=== PATIENT | female | born 1945 | race Caucasian/White ===

== ENCOUNTER 2019-03-19 16:53 | Inpatient (IN) | payer MEDICARE, BC ==
[2019-03-19] MEDS ORDERED: Albuterol/Ipratropium 3.0-0.5 MG/3 ML Neb Soln NEB ONE (16:58)
[2019-03-19] MEDS ORDERED: Sodium Chloride 0.9% 1,000 ML IV SCH (17:00)
--- NOTE | 2019-03-19 17:00 | EDM.PDOC ---
ED HPI GENERAL MEDICAL PROBLEM - General Chief Complaint: Respiratory Problem Stated Complaint: COUGHING Time Seen by Provider: 03/19/19 16:59 Source of Information: Reports: Patient - History of Present Illness INITIAL COMMENTS - FREE TEXT/NARRATIVE: HISTORY AND PHYSICAL: History of present illness: [Patient presents with cough shortness of breath increasing over the last month , she has had several visits with her primary care in [place] she is had multiple chest x-rays and a CT of her chest with no findings She has completed a course of amoxicillin, she also notes she has had some travel to [place] [facility] [place] was [place] and had returned home a few weeks prior to initiation of symptoms No fever nausea vomiting chills sweats however patient complains of persistent cough shortness of breath wheeze she has also been on albuterol and prednisone for these symptoms no chest pain headache dizziness palpitation no bowel or urine symptoms Review of systems: As per history of present illness and below otherwise all systems reviewed and negative. Past medical history: As per history of present illness and as reviewed below otherwise noncontributory. Surgical history: As per history of present illness and as reviewed below otherwise noncontributory. Social history: No reported history of drug or alcohol abuse. Family history: As per history of present illness and as reviewed below otherwise noncontributory. Physical exam: HEENT: Atraumatic, normocephalic, pupils reactive, negative for conjunctival pallor or scleral icterus, mucous membranes moist, throat clear, neck supple, nontender, trachea midline. Lungs: Clear to auscultation, breath sounds equal bilaterally, chest nontender. Heart: S1S2, regular, negative for clicks, rubs, or JVD. Abdomen: Soft, nondistended, nontender. Negative for masses or hepatosplenomegaly. Negative for costovertebral tenderness. Pelvis: Stable nontender. Genitourinary: Deferred. Rectal: Deferred. Extremities: Atraumatic, negative for cords or calf pain. Neurovascular unremarkable. Neuro: Awake, alert, oriented. Cranial nerves II through XII unremarkable. Cerebellum unremarkable. Motor and sensory unremarkable throughout. Exam nonfocal. Diagnostics: [CBC CMP UA blood cultures peripheral smear d-dimer Chest [address] maxillofacial sinus ] Therapeutics: [ normal saline Levaquin Diflucan ] Impression: Sinusitis [ leukocytosis 16,000 absolute count neutrophils monocytes and lymphocytes elevated -peripheral smear ordered Travel to [facility]-consider Desert fever General malaise persistent cough and wheeze Definitive disposition and diagnosis as appropriate pending reevaluation and review of above. - Related Data Allergies Allergy/AdvReac Type Severity Reaction Status Date / Time Sulfa (Sulfonamide Allergy Other Verified 03/19/19 17:03 Antibiotics) Home Meds: Home Meds Ascorbic Acid [Vitamin C] 500 mg PO DAILY 03/19/19 [History] Aspirin [Adult Low Dose Aspirin EC] 1 tab DAILY 03/19/19 [History] Cetirizine [ZyrTEC] 10 mg PO DAILY 03/19/19 [History] Lactobacillus Acidophilus [Probiotic] 1 each PO DAILY 03/19/19 [History] Metoprolol Tartrate 0.5 tab PO DAILY 03/19/19 [History] Psyllium Husk/Aspartame [Metamucil Fiber Singles Packet] 3.4 gm PO ASDIRECTED PRN 03/19/19 [History] Quinapril HCl 40 mg PO DAILY 03/19/19 [History] Simvastatin 20 mg PO ASDIRECTED 03/19/19 [History] Vitamin B Complex/Folic Acid [Super B Maxi Complex Caplet] 1 tab DAILY 03/19/19 [History] ED ROS GENERAL - Review of Systems Review Of Systems: See Below ED EXAM, GENERAL - Physical Exam Exam: See Below Course - Vital Signs Last Recorded V/S: Last Vital Signs Temp 96.7 F 03/19/19 17:01 Pulse 102 H 03/19/19 17:01 Resp 20 03/19/19 17:01 BP 187/98 H 03/19/19 17:01 Pulse Ox 96 03/19/19 17:01 - Orders/Labs/Meds Orders: Active Orders 24 hr Category Date Time Status EKG Documentation Completion [RC] STAT Care 03/19/19 16:59 Active RT Aerosol Therapy [RC] ASDIRECTED Care 03/19/19 16:59 Active Maxillofacial w/o CM [Max Facial Sinus wo Cont] [CT] Exams 03/19/19 18:15 Taken Stat CULTURE BLOOD [BC] Stat Lab 03/19/19 18:18 Ordered CULTURE BLOOD [BC] Stat Lab 03/19/19 18:18 Ordered CULTURE BLOOD [BC] Stat Lab 03/19/19 18:30 Ordered CULTURE BLOOD [BC] Stat Lab 03/19/19 18:30 Ordered D-DIMER QUANTITATIVE [COAG] Stat Lab 03/19/19 18:21 Ordered PERIPH BLOOD SMEAR PATHOLOGIST [HEME] Stat Lab 03/19/19 18:25 Ordered UA W/MICROSCOPIC [URIN] Stat Lab 03/19/19 18:05 Results Fluconazole/Dextrose [Diflucan in Dextrose 200 MG/100 Med 03/19/19 18:30 Active ML] 200 mg Premix Bag 1 bag IV Q24H Levofloxacin/Dextrose 5%-Water [Levaquin in D5W 500 MG/ Med 03/19/19 18:17 Active 100 ML] 500 mg Premix Bag 1 bag IV ONETIME Sodium Chloride 0.9% [Normal Saline] 1,000 ml Med 03/19/19 17:00 Active IV STAT Blood Culture x2 Reflex Set [OM.PC] Stat Oth 03/19/19 18:18 Ordered Blood Culture x2 Reflex Set [OM.PC] Stat Oth 03/19/19 18:30 Ordered Medication Orders Sodium Chloride (Normal Saline) 1,000 mls @ 125 mls/hr IV STAT MARK Last Admin: 03/19/19 17:17 Dose: 125 mls/hr Fluconazole 200 mg/ Premix 100 mls @ 100 mls/hr IV Q24H MARK Levofloxacin/Dextrose 500 mg/ (Premix) 100 mls @ 100 mls/hr IV ONETIME ONE Stop: 03/19/19 19:16 Labs: Laboratory Tests 03/19/19 03/19/19 03/19/19 Range/Units 17:15 17:15 17:15 WBC 16.49 H (4.0-11.0) K/uL RBC 4.22 L (4.30-5.90) M/uL Hgb 13.6 (12.0-16.0) g/dL Hct 40.8 (36.0-46.0) % MCV 96.7 (80.0-98.0) fL MCH 32.2 H (27.0-32.0) pg MCHC 33.3 (31.0-37.0) g/dL RDW Std Deviation 47.3 (28.0-62.0) fl RDW Coeff of [place] 13 (11.0-15.0) % Plt Count 236 (150-400) K/uL MPV 10.10 (7.40-12.00) fL Neut % (Auto) 59.1 (48.0-80.0) % Lymph % (Auto) 29.7 (16.0-40.0) % [place] % (Auto) 8.0 (0.0-15.0) % Eos % (Auto) 2.9 (0.0-7.0) % Baso % (Auto) 0.3 (0.0-1.5) % Neut # (Auto) 9.7 H (1.4-5.7) K/uL Lymph # (Auto) 4.9 H (0.6-2.4) K/uL [place] # (Auto) 1.3 H (0.0-0.8) K/uL Eos # (Auto) 0.5 (0.0-0.7) K/uL Baso # (Auto) 0.1 (0.0-0.1) K/uL Nucleated RBC % 0.0 /100WBC Nucleated RBCs # 0 K/uL Sodium 140 (136-145) mmol/L Potassium 4.2 (3.5-5.1) mmol/L Chloride 103 (98-107) mmol/L Carbon Dioxide 29.3 (21.0-32.0) mmol/L BUN 17 (7.0-18.0) mg/dL Creatinine 1.4 H (0.6-1.0) mg/dL Est Cr Clr Drug Dosing 29.16 mL/min Estimated GFR (MDRD) 36.8 ml/min Glucose 116 H (74-106) mg/dL Calcium 8.8 (8.5-10.1) mg/dL Total Bilirubin 0.4 (0.2-1.0) mg/dL AST 21 (15-37) IU/L ALT 26 (14-63) IU/L Alkaline Phosphatase 68 (46-116) U/L Troponin I < 0.050 (0.000-0.056) ng/mL B-Natriuretic Peptide 45 (<100) PG/ML Total Protein 6.9 (6.4-8.2) g/dL Albumin 3.2 L (3.4-5.0) g/dL Globulin 3.7 (2.6-4.0) g/dL Albumin/Globulin Ratio 0.9 (0.9-1.6) Urine Color Urine Appearance Urine pH (5.0-8.0) Ur Specific [place] (1.001-1.035) Urine Protein (NEGATIVE) mg/dL Urine Glucose (UA) (NEGATIVE) mg/dL Urine Ketones (NEGATIVE) mg/dL Urine Occult Blood (NEGATIVE) Urine Nitrite (NEGATIVE) Urine Bilirubin (NEGATIVE) Urine Urobilinogen (<2.0) EU/dL Ur Leukocyte Esterase (NEGATIVE) 03/19/19 Range/Units 18:05 WBC (4.0-11.0) K/uL RBC (4.30-5.90) M/uL Hgb (12.0-16.0) g/dL Hct (36.0-46.0) % MCV (80.0-98.0) fL MCH (27.0-32.0) pg MCHC (31.0-37.0) g/dL RDW Std Deviation (28.0-62.0) fl RDW Coeff of [place] (11.0-15.0) % Plt Count (150-400) K/uL MPV (7.40-12.00) fL Neut % (Auto) (48.0-80.0) % Lymph % (Auto) (16.0-40.0) % [place] % (Auto) (0.0-15.0) % Eos % (Auto) (0.0-7.0) % Baso % (Auto) (0.0-1.5) % Neut # (Auto) (1.4-5.7) K/uL Lymph # (Auto) (0.6-2.4) K/uL [place] # (Auto) (0.0-0.8) K/uL Eos # (Auto) (0.0-0.7) K/uL Baso # (Auto) (0.0-0.1) K/uL Nucleated RBC % /100WBC Nucleated RBCs # K/uL Sodium (136-145) mmol/L Potassium (3.5-5.1) mmol/L Chloride (98-107) mmol/L Carbon Dioxide (21.0-32.0) mmol/L BUN (7.0-18.0) mg/dL Creatinine (0.6-1.0) mg/dL Est Cr Clr Drug Dosing mL/min Estimated GFR (MDRD) ml/min Glucose (74-106) mg/dL Calcium (8.5-10.1) mg/dL Total Bilirubin (0.2-1.0) mg/dL AST (15-37) IU/L ALT (14-63) IU/L Alkaline Phosphatase (46-116) U/L Troponin I (0.000-0.056) ng/mL B-Natriuretic Peptide (<100) PG/ML Total Protein (6.4-8.2) g/dL Albumin (3.4-5.0) g/dL Globulin (2.6-4.0) g/dL Albumin/Globulin Ratio (0.9-1.6) Urine Color YELLOW Urine Appearance CLEAR Urine pH 5.5 (5.0-8.0) Ur Specific [place] 1.020 (1.001-1.035) Urine Protein NEGATIVE (NEGATIVE) mg/dL Urine Glucose (UA) NEGATIVE (NEGATIVE) mg/dL Urine Ketones NEGATIVE (NEGATIVE) mg/dL Urine Occult Blood TRACE-INTACT H (NEGATIVE) Urine Nitrite NEGATIVE (NEGATIVE) Urine Bilirubin NEGATIVE (NEGATIVE) Urine Urobilinogen 0.2 (<2.0) EU/dL Ur Leukocyte Esterase NEGATIVE (NEGATIVE) Meds: Medications Generic Name Dose Route Start Last Admin Trade Name Freq PRN Reason Stop Dose Admin Sodium Chloride 1,000 mls @ 125 mls/hr 03/19/19 17:00 03/19/19 17:17 Normal Saline IV 125 mls/hr STAT MARK Administration Fluconazole 200 mg/ Premix 100 mls @ 100 mls/hr 03/19/19 18:30 IV Q24H MARK Levofloxacin/Dextrose 500 mg/ 100 mls @ 100 mls/hr 03/19/19 18:17 Premix IV 03/19/19 19:16 ONETIME ONE Discontinued Medications Generic Name Dose Route Start Last Admin Trade Name Freq PRN Reason Stop Dose Admin Albuterol/Ipratropium 3 ml 03/19/19 16:58 03/19/19 17:14 Duoneb 3.0-0.5 Mg/3 Ml NEB 03/19/19 16:59 3 ml ONETIME ONE Administration Methylprednisolone Sodium Succinate 125 mg 03/19/19 18:17 03/19/19 18:47 Solu-Medrol IVPUSH 03/19/19 18:18 125 mg ONETIME ONE Administration Departure - Departure Time of Disposition: 18:52 Disposition: Admitted As Inpatient 65 Condition: Fair Clinical Impression: Persistent cough, Sinusitis - Discharge Information Referrals: PCP,None [Primary Care Provider] - Forms: ED Department Discharge - My Orders Last 24 Hours: My Active Orders 03/19/19 16:59 EKG Documentation Completion [RC] STAT RT Aerosol Therapy [RC] ASDIRECTED 03/19/19 17:00 Sodium Chloride 0.9% [Normal Saline] 1,000 ml IV STAT 03/19/19 18:05 UA W/MICROSCOPIC [URIN] Stat 03/19/19 18:15 Maxillofacial w/o CM [Max Facial Sinus wo Cont] [CT] Stat 03/19/19 18:17 Levofloxacin/Dextrose 5%-Water [Levaquin in D5W 500 MG/100 ML] 500 mg Premix Bag 1 bag IV ONETIME 03/19/19 18:18 CULTURE BLOOD [BC] Stat CULTURE BLOOD [BC] Stat Blood Culture x2 Reflex Set [OM.PC] Stat 03/19/19 18:21 D-DIMER QUANTITATIVE [COAG] Stat 03/19/19 18:25 PERIPH BLOOD SMEAR PATHOLOGIST [HEME] Stat 03/19/19 18:30 CULTURE BLOOD [BC] Stat CULTURE BLOOD [BC] Stat Fluconazole/Dextrose [Diflucan in Dextrose 200 MG/100 ML] 200 mg Premix Bag 1 bag IV Q24H Blood Culture x2 Reflex Set [OM.PC] Stat - Assessment/Plan Last 24 Hours: My Active Orders 03/19/19 16:59 EKG Documentation Completion [RC] STAT RT Aerosol Therapy [RC] ASDIRECTED 03/19/19 17:00 Sodium Chloride 0.9% [Normal Saline] 1,000 ml IV STAT 03/19/19 18:05 UA W/MICROSCOPIC [URIN] Stat 03/19/19 18:15 Maxillofacial w/o CM [Max Facial Sinus wo Cont] [CT] Stat 03/19/19 18:17 Levofloxacin/Dextrose 5%-Water [Levaquin in D5W 500 MG/100 ML] 500 mg Premix Bag 1 bag IV ONETIME 03/19/19 18:18 CULTURE BLOOD [BC] Stat CULTURE BLOOD [BC] Stat Blood Culture x2 Reflex Set [OM.PC] Stat 03/19/19 18:21 D-DIMER QUANTITATIVE [COAG] Stat 03/19/19 18:25 PERIPH BLOOD SMEAR PATHOLOGIST [HEME] Stat 03/19/19 18:30 CULTURE BLOOD [BC] Stat CULTURE BLOOD [BC] Stat Fluconazole/Dextrose [Diflucan in Dextrose 200 MG/100 ML] 200 mg Premix Bag 1 bag IV Q24H Blood Culture x2 Reflex Set [OM.PC] Stat
[2019-03-19 17:53] LABS: CHLORIDE,CL 103 mmol/L (98-107); SODIUM,NA 140 mmol/L (136-145)
--- NOTE | 2019-03-19 18:07 | CR ---
HISTORY: Cough and shortness of breath. COMPARISON: None available FINDINGS: A portable erect AP view of the chest was obtained at STUDY TIME hours. The lungs are clear. No focal or diffuse infiltrates are present. The heart is normal in size. The mediastinum is normal in appearance. The osseous structures are normal in appearance for the patient`s age. IMPRESSION: Normal portable chest single view. Dictated by Zane Sung MD @ Mar 19 2019 6:05PM Signed by Dr. Zane Sung @ Mar 19 2019 6:06PM
[2019-03-19] MEDS ORDERED: Levofloxacin/Dextrose 5%-Water 500 MG in Premix Bag 1 BAG IV ONE (18:17)
[2019-03-19] MEDS ORDERED: methylPREDNISolone Sodium Succinate 125 MG/2 ML SDV IVPUSH ONE (18:17)
[2019-03-19] MEDS ORDERED: Fluconazole/Dextrose 200 MG in Premix Bag 1 BAG IV SCH (18:30)
--- NOTE | 2019-03-19 19:06 | CT ---
INDICATION: Sinus pain COMPARISON: none TECHNIQUE: A CT volumetric acquisition was performed of the sinuses without IV contrast. Please note that all CT scans at this facility use dose modulation, iterative reconstruction, and/or weight-based dosing when appropriate to reduce radiation dose to as low as reasonably achievable. FINDINGS: Mild-moderate mucoperiosteal thickening within the maxillary sinuses bilaterally, left greater than right. Near complete opacification of the ethmoid sinuses bilaterally. Mild mucoperiosteal thickening within the sphenoid sinuses. Moderate opacification of the inferior right frontal sinus. Clear left frontal sinus. Obstruction of the ostiomeatal complexes bilaterally. Clear mastoid air cells and middle ear cavities. IMPRESSION: At least moderate bilateral sinus disease. Please note that all CT scans at this facility use dose modulation, iterative reconstruction, and/or weight-based dosing when appropriate to reduce radiation dose to as low as reasonably achievable. Dictated by Esteban Rain MD @ Mar 19 2019 7:00PM Signed by Dr. Esteban Rain @ Mar 19 2019 7:05PM
[2019-03-19] MEDS ORDERED: Albuterol/Ipratropium 3.0-0.5 MG/3 ML Neb Soln NEB PRN (20:23)
[2019-03-19] MEDS ORDERED: oxyCODONE 5 MG Tab PO PRN (20:27)
[2019-03-19] MEDS: Fluconazole 100 MG Tab PO SCH (21:03)
[2019-03-20] MEDS: methylPREDNISolone Sodium Succinate 125 MG/2 ML SDV IVPUSH SCH ×3 (03:08→18:13)
[2019-03-20] MEDS: Sodium Chloride 0.9% 1,000 ML IV SCH ×3 (03:08→23:15)
[2019-03-20] MEDS: Acetaminophen 325 MG Tab PO PRN ×3 (04:51→23:13)
--- NOTE | 2019-03-20 06:26 | PCM.HP ---
H&P History of Present Illness - General Date of Service: 03/20/19 Admit Problem/Dx: Admission Diagnosis/Problem Admission Diagnosis/Problem Cough Source of Information: Patient History Limitations: Reports: No Limitations - History of Present Illness Initial Comments - Free Text/Narative: The patient is a 73-year-old lady who is presented to the emergency department with a complaint of cough and sputum production. The patient had been recently in [place] and spent 6 months of the year in [place]. The patient reports that she had been evaluated at urgent care center and had been on several courses of antibiotics but had failed to improve. Because of this the patient has been concerned about fungal infection. The patient has denied any fever or chills. She's had no nausea or vomiting. The patient has denied any chest pain. The patient has been in her usual state of health. Onset of Symptoms: Reports: Gradual Duration of Symptoms: Reports: Week(s): (4 weeks) Location: Reports: Chest Quality: Reports: Ache Severity: Mild Improves with: Reports: Rest Worsens with: Reports: Breathing Context: Reports: Travel Associated Symptoms: Reports: cough w sputum - Related Data Allergies/Adverse Reactions: Allergies Allergy/AdvReac Type Severity Reaction Status Date / Time Sulfa (Sulfonamide Allergy Other Verified 03/19/19 21:02 Antibiotics) Home Medications: Home Meds Ascorbic Acid [Vitamin C] 500 mg PO DAILY 03/19/19 [History] Aspirin [Adult Low Dose Aspirin EC] 1 tab DAILY 03/19/19 [History] Cetirizine [ZyrTEC] 10 mg PO DAILY 03/19/19 [History] Lactobacillus Acidophilus [Probiotic] 1 each PO DAILY 03/19/19 [History] Metoprolol Tartrate 0.5 tab PO DAILY 03/19/19 [History] Psyllium Husk/Aspartame [Metamucil Fiber Singles Packet] 3.4 gm PO ASDIRECTED PRN 03/19/19 [History] Quinapril HCl 40 mg PO DAILY 03/19/19 [History] Simvastatin 20 mg PO ASDIRECTED 03/19/19 [History] Vitamin B Complex/Folic Acid [Super B Maxi Complex Caplet] 1 tab DAILY 03/19/19 [History] guaiFENesin [Mucinex] 2 tab PO DAILY PRN 03/19/19 [History] Past Medical History HEENT History: Reports: Hard of Hearing, Impaired Vision, Sinusitis Cardiovascular History: Reports: High Cholesterol, Hypertension Respiratory History: Reports: None Gastrointestinal History: Reports: Chronic Constipation Genitourinary History: Reports: Other (See Below) Other Genitourinary History: bladder repair after hysterectomy Musculoskeletal History: Reports: None Neurological History: Reports: None Psychiatric History: Reports: None Endocrine/Metabolic History: Reports: None Hematologic History: Reports: None Immunologic History: Reports: None Oncologic (Cancer) History: Reports: None Dermatologic History: Reports: Other (See Below) Other Dermatologic History: thin skin, per patient, brusies easily - Infectious Disease History Infectious Disease History: Reports: Chicken Pox - Past Surgical History HEENT Surgical History: Reports: None Cardiovascular Surgical History: Reports: None GI Surgical History: Reports: None Female Surgical History: Reports: Hysterectomy, Other (See Below) Other Female Surgeries/Procedures: bladder repair after hysterectomy Endocrine Surgical History: Reports: Other (See Below) Other Endocrine Surgeries/Procedures: partial thyroid removal Dermatological Surgical History: Reports: None Social & Family History - Family History Family Medical History: Noncontributory - Tobacco Use Smoking Status *Q: Never Smoker Second Hand Smoke Exposure: No - Caffeine Use Caffeine Use: Reports: Coffee, Tea - Alcohol Use Days Per Week of Alcohol Use: 3 Number of Drinks Per Day: 2 Total Drinks Per Week: 6 Date of Last Drink: 03/12/19 - Recreational Drug Use Recreational Drug Use: No - Living Situation & Occupation Living situation: Reports: , with Family Occupation: Retired H&P Review of Systems - Review of Systems: Review Of Systems: See Below General: Reports: Chills, Weakness HEENT: Reports: Hearing Changes Pulmonary: Reports: Cough, Sputum. Denies: Shortness of Breath, Wheezing Cardiovascular: Reports: No Symptoms Gastrointestinal: Reports: No Symptoms Genitourinary: Reports: No Symptoms Musculoskeletal: Reports: No Symptoms Skin: Reports: No Symptoms Psychiatric: Reports: No Symptoms Neurological: Reports: No Symptoms Hematologic/Lymphatic: Reports: No Symptoms Immunologic: Reports: No Symptoms Exam - Exam Exam: See Below - Vital Signs Vital Signs: Last Vital Signs Temp 36.3 C 03/20/19 04:54 Pulse 96 03/20/19 04:54 Resp 14 03/20/19 04:54 BP 144/79 H 03/20/19 04:54 Pulse Ox 94 L 03/20/19 04:54 Weight: 76.067 kg - Exam Quality Assessment: No: Supplemental Oxygen General: Alert, Oriented, Cooperative HEENT: Conjunctiva Clear, EACs Clear, EOMI, Mucosa Moist & [place], Normal Nasal Septum, Pupils Equal, PERRLA Neck: Supple, Trachea Midline Lungs: Clear to Auscultation, Normal Respiratory Effort Cardiovascular: Regular Rate, Regular Rhythm GI/Abdominal Exam: Normal Bowel Sounds, Soft, No Distention. No: Guarding, Rigid, Rebound Back Exam: Normal Inspection, Full Range of Motion Extremities: Normal Inspection, Normal Range of Motion, Pedal Edema (Trace) Skin: Warm, Dry, Intact Neurological: Cranial Nerves Intact Neuro Extensive - Mental Status: Alert, Oriented x3 Psychiatric: Alert, Normal Affect, Normal Mood - Patient Data Lab Results Last 24 hrs: Laboratory Results - last 24 hr 03/19/19 03/19/19 03/19/19 Range/Units 17:15 17:15 17:15 WBC 16.49 H (4.0-11.0) K/uL RBC 4.22 L (4.30-5.90) M/uL Hgb 13.6 (12.0-16.0) g/dL Hct 40.8 (36.0-46.0) % MCV 96.7 (80.0-98.0) fL MCH 32.2 H (27.0-32.0) pg MCHC 33.3 (31.0-37.0) g/dL RDW Std Deviation 47.3 (28.0-62.0) fl RDW Coeff of [place] 13 (11.0-15.0) % Plt Count 236 (150-400) K/uL MPV 10.10 (7.40-12.00) fL Neut % (Auto) 59.1 (48.0-80.0) % Lymph % (Auto) 29.7 (16.0-40.0) % [place] % (Auto) 8.0 (0.0-15.0) % Eos % (Auto) 2.9 (0.0-7.0) % Baso % (Auto) 0.3 (0.0-1.5) % Neut # (Auto) 9.7 H (1.4-5.7) K/uL Lymph # (Auto) 4.9 H (0.6-2.4) K/uL [place] # (Auto) 1.3 H (0.0-0.8) K/uL Eos # (Auto) 0.5 (0.0-0.7) K/uL Baso # (Auto) 0.1 (0.0-0.1) K/uL Nucleated RBC % 0.0 /100WBC Nucleated RBCs # 0 K/uL Smear Path Review D-Dimer, Quantitative (0.0-0.50) mg/L FEU Sodium 140 (136-145) mmol/L Potassium 4.2 (3.5-5.1) mmol/L Chloride 103 (98-107) mmol/L Carbon Dioxide 29.3 (21.0-32.0) mmol/L BUN 17 (7.0-18.0) mg/dL Creatinine 1.4 H (0.6-1.0) mg/dL Est Cr Clr Drug Dosing 29.16 mL/min Estimated GFR (MDRD) 36.8 ml/min Glucose 116 H (74-106) mg/dL Calcium 8.8 (8.5-10.1) mg/dL Total Bilirubin 0.4 (0.2-1.0) mg/dL AST 21 (15-37) IU/L ALT 26 (14-63) IU/L Alkaline Phosphatase 68 (46-116) U/L Troponin I < 0.050 (0.000-0.056) ng/mL B-Natriuretic Peptide 45 (<100) PG/ML Total Protein 6.9 (6.4-8.2) g/dL Albumin 3.2 L (3.4-5.0) g/dL Globulin 3.7 (2.6-4.0) g/dL Albumin/Globulin Ratio 0.9 (0.9-1.6) Urine Color Urine Appearance Urine pH (5.0-8.0) Ur Specific [place] (1.001-1.035) Urine Protein (NEGATIVE) mg/dL Urine Glucose (UA) (NEGATIVE) mg/dL Urine Ketones (NEGATIVE) mg/dL Urine Occult Blood (NEGATIVE) Urine Nitrite (NEGATIVE) Urine Bilirubin (NEGATIVE) Urine Urobilinogen (<2.0) EU/dL Ur Leukocyte Esterase (NEGATIVE) Urine RBC (0-2/HPF) Urine WBC (0-5/HPF) Ur Epithelial Cells (NONE-FEW) Urine Bacteria (NEGATIVE) 03/19/19 03/19/19 03/19/19 Range/Units 17:15 18:05 18:49 WBC (4.0-11.0) K/uL RBC (4.30-5.90) M/uL Hgb (12.0-16.0) g/dL Hct (36.0-46.0) % MCV (80.0-98.0) fL MCH (27.0-32.0) pg MCHC (31.0-37.0) g/dL RDW Std Deviation (28.0-62.0) fl RDW Coeff of [place] (11.0-15.0) % Plt Count (150-400) K/uL MPV (7.40-12.00) fL Neut % (Auto) (48.0-80.0) % Lymph % (Auto) (16.0-40.0) % [place] % (Auto) (0.0-15.0) % Eos % (Auto) (0.0-7.0) % Baso % (Auto) (0.0-1.5) % Neut # (Auto) (1.4-5.7) K/uL Lymph # (Auto) (0.6-2.4) K/uL [place] # (Auto) (0.0-0.8) K/uL Eos # (Auto) (0.0-0.7) K/uL Baso # (Auto) (0.0-0.1) K/uL Nucleated RBC % /100WBC Nucleated RBCs # K/uL Smear Path Review SENT TO PATHOLOGY D-Dimer, Quantitative 4.99 H (0.0-0.50) mg/L FEU Sodium (136-145) mmol/L Potassium (3.5-5.1) mmol/L Chloride (98-107) mmol/L Carbon Dioxide (21.0-32.0) mmol/L BUN (7.0-18.0) mg/dL Creatinine (0.6-1.0) mg/dL Est Cr Clr Drug Dosing mL/min Estimated GFR (MDRD) ml/min Glucose (74-106) mg/dL Calcium (8.5-10.1) mg/dL Total Bilirubin (0.2-1.0) mg/dL AST (15-37) IU/L ALT (14-63) IU/L Alkaline Phosphatase (46-116) U/L Troponin I (0.000-0.056) ng/mL B-Natriuretic Peptide (<100) PG/ML Total Protein (6.4-8.2) g/dL Albumin (3.4-5.0) g/dL Globulin (2.6-4.0) g/dL Albumin/Globulin Ratio (0.9-1.6) Urine Color YELLOW Urine Appearance CLEAR Urine pH 5.5 (5.0-8.0) Ur Specific [place] 1.020 (1.001-1.035) Urine Protein NEGATIVE (NEGATIVE) mg/dL Urine Glucose (UA) NEGATIVE (NEGATIVE) mg/dL Urine Ketones NEGATIVE (NEGATIVE) mg/dL Urine Occult Blood TRACE-INTACT H (NEGATIVE) Urine Nitrite NEGATIVE (NEGATIVE) Urine Bilirubin NEGATIVE (NEGATIVE) Urine Urobilinogen 0.2 (<2.0) EU/dL Ur Leukocyte Esterase NEGATIVE (NEGATIVE) Urine RBC 1-2 (0-2/HPF) Urine WBC 0-1 (0-5/HPF) Ur Epithelial Cells RARE (NONE-FEW) Urine Bacteria RARE (NEGATIVE) 03/20/19 Range/Units 05:56 WBC 13.69 H (4.0-11.0) K/uL RBC 4.06 L (4.30-5.90) M/uL Hgb 12.8 (12.0-16.0) g/dL Hct 39.1 (36.0-46.0) % MCV 96.3 (80.0-98.0) fL MCH 31.5 (27.0-32.0) pg MCHC 32.7 (31.0-37.0) g/dL RDW Std Deviation 45.6 (28.0-62.0) fl RDW Coeff of [place] 13 (11.0-15.0) % Plt Count 245 (150-400) K/uL MPV 10.10 (7.40-12.00) fL Neut % (Auto) 57.9 (48.0-80.0) % Lymph % (Auto) 39.4 (16.0-40.0) % [place] % (Auto) 1.3 (0.0-15.0) % Eos % (Auto) 1.2 (0.0-7.0) % Baso % (Auto) 0.2 (0.0-1.5) % Neut # (Auto) 7.9 H (1.4-5.7) K/uL Lymph # (Auto) 5.4 H (0.6-2.4) K/uL [place] # (Auto) 0.2 (0.0-0.8) K/uL Eos # (Auto) 0.2 (0.0-0.7) K/uL Baso # (Auto) 0.0 (0.0-0.1) K/uL Nucleated RBC % 0.0 /100WBC Nucleated RBCs # 0 K/uL Smear Path Review D-Dimer, Quantitative (0.0-0.50) mg/L FEU Sodium (136-145) mmol/L Potassium (3.5-5.1) mmol/L Chloride (98-107) mmol/L Carbon Dioxide (21.0-32.0) mmol/L BUN (7.0-18.0) mg/dL Creatinine (0.6-1.0) mg/dL Est Cr Clr Drug Dosing mL/min Estimated GFR (MDRD) ml/min Glucose (74-106) mg/dL Calcium (8.5-10.1) mg/dL Total Bilirubin (0.2-1.0) mg/dL AST (15-37) IU/L ALT (14-63) IU/L Alkaline Phosphatase (46-116) U/L Troponin I (0.000-0.056) ng/mL B-Natriuretic Peptide (<100) PG/ML Total Protein (6.4-8.2) g/dL Albumin (3.4-5.0) g/dL Globulin (2.6-4.0) g/dL Albumin/Globulin Ratio (0.9-1.6) Urine Color Urine Appearance Urine pH (5.0-8.0) Ur Specific [place] (1.001-1.035) Urine Protein (NEGATIVE) mg/dL Urine Glucose (UA) (NEGATIVE) mg/dL Urine Ketones (NEGATIVE) mg/dL Urine Occult Blood (NEGATIVE) Urine Nitrite (NEGATIVE) Urine Bilirubin (NEGATIVE) Urine Urobilinogen (<2.0) EU/dL Ur Leukocyte Esterase (NEGATIVE) Urine RBC (0-2/HPF) Urine WBC (0-5/HPF) Ur Epithelial Cells (NONE-FEW) Urine Bacteria (NEGATIVE) Result Diagrams: 03/20/19 05:56 03/20/19 05:56 - Problem List (1) Bronchitis SNOMED Code(s): 38861223 ICD Code: J40 - BRONCHITIS, NOT SPECIFIED ACUTE OR CHRONIC Status: Acute Priority: High Current Visit: Yes (2) Hypertension SNOMED Code(s): 92456433 ICD Code: I10 - ESSENTIAL (PRIMARY) HYPERTENSION Status: Chronic Priority : High Current Visit: Yes Qualifiers: Hypertension type: essential hypertension Qualified Code(s): I10 - Essential (primary) hypertension (3) Persistent cough SNOMED Code(s): 142533663 ICD Code: R05 - COUGH Status: Chronic Priority: High Current Visit: Yes (4) Sinusitis SNOMED Code(s): 13965703 ICD Code: J32.9 - CHRONIC SINUSITIS, UNSPECIFIED Status: Chronic Priority : High Current Visit: Yes Qualifiers: Sinusitis location: maxillary Chronicity: chronic Qualified Code(s): J32.0 - Chronic maxillary sinusitis (5) Hyperlipidemia SNOMED Code(s): 33691248 ICD Code: E78.5 - HYPERLIPIDEMIA, UNSPECIFIED Status: Chronic Priority: Medium Current Visit: Yes Qualifiers: Hyperlipidemia type: other hyperlipidemia Qualified Code(s): E78.49 - Other hyperlipidemia; E78.4 - Other hyperlipidemia Problem List Initiated/Reviewed/Updated: Yes Orders Last 24hrs: Active Orders 24 hr Category Date Time Status Admission Status [Patient Status] [ADT] Stat ADT 03/19/19 18:53 Active EKG Documentation Completion [RC] STAT Care 03/19/19 16:59 Active Oxygen Therapy [RC] CONTINUOUS Care 03/19/19 20:30 Active RT Aerosol Therapy [RC] ASDIRECTED Care 03/19/19 16:59 Active Regular Diet [DIET] Diet 03/20/19 Breakfast Active BMP [BASIC METABOLIC PANEL,BMP] [CHEM] Routine Lab 03/20/19 05:56 Received CULTURE BLOOD [BC] Stat Lab 03/19/19 18:49 Received CULTURE BLOOD [BC] Stat Lab 03/19/19 18:49 Received Acetaminophen [Tylenol] Med 03/19/19 20:26 Active 650 mg PO Q6H PRN Albuterol/Ipratropium [DuoNeb 3.0-0.5 MG/3 ML] Med 03/19/19 20:23 Active 3 ml NEB Q4HRRT PRN Fluconazole [Diflucan] Med 03/19/19 21:00 Active 100 mg PO Q24H Sodium Chloride 0.9% [Normal Saline] 1,000 ml Med 03/19/19 20:30 Active IV ASDIRECTED methylPREDNISolone Sod Succ [Solu-MEDROL] Med 03/20/19 03:00 Active 125 mg IVPUSH Q8H oxyCODONE Med 03/19/19 20:27 Active 5 mg PO Q4H PRN Blood Culture x2 Reflex Set [OM.PC] Stat Oth 03/19/19 18:18 Ordered Blood Culture x2 Reflex Set [OM.PC] Stat Ot 03/19/19 18:30 Ordered Medication Orders Acetaminophen (Tylenol) 650 mg PO Q6H PRN PRN Reason: Pain (mild 1-3) Last Admin: 03/20/19 04:51 Dose: 650 mg Albuterol/Ipratropium (Duoneb 3.0-0.5 Mg/3 Ml) 3 ml NEB Q4HRRT PRN PRN Reason: Shortness of Breath Fluconazole (Diflucan) 100 mg PO Q24H [facility] Last Admin: 03/19/19 21:03 Dose: 100 mg Sodium Chloride (Normal Saline) 1,000 mls @ 100 mls/hr IV ASDIRECTED MARK Last Admin: 03/20/19 03:08 Dose: 100 mls/hr Methylprednisolone Sodium Succinate (Solu-Medrol) 125 mg IVPUSH Q8H [facility] Last Admin: 03/20/19 03:08 Dose: 125 mg Oxycodone HCl (Oxycodone) 5 mg PO Q4H PRN PRN Reason: Pain (moderate 4-6) Assessment/Plan Comment:: Patient is a 73-year-old lady who presented to the emergency department with bronchitis with cough and sputum production. The patient had been on outpatient antibiotics and had failed disease. Fungal cultures as well as fungal stain have been ordered for sputum. The patient will be admitted and started on Levaquin and Diflucan for now. These will be de-escalated as needed. I've also ordered SVNs. The patient will be anticoagulated with heparin for now. She'll be continued on fluids. Patient has been encouraged to ambulate. I've ordered repeat laboratory studies. The patient will need to have a PFT as an outpatient. The patient should be appropriate for discharge in 1-2 days. The patient will be monitored with regards to her vital signs. I've ordered her antihypertensives continued. She'll have a heart healthy diet as tolerated.
[2019-03-20] MEDS ORDERED: Ondansetron 4 MG Tab.DIS PO PRN (06:48)
[2019-03-20] MEDS ORDERED: Temazepam 15 MG Cap PO PRN (06:48)
[2019-03-20] MEDS: Heparin Sodium 5,000 Units/ML Vial SUBCUT SCH ×3 (08:00→23:09)
[2019-03-20] MEDS: Metoprolol Tartrate 25 MG Tab PO SCH (08:03)
[2019-03-20] MEDS: Ascorbic Acid 500 MG Tab PO SCH (08:03)
[2019-03-20] MEDS: Aspirin 81 MG Tab.EC PO SCH (08:04)
[2019-03-20] MEDS: Levofloxacin/Dextrose 5%-Water 500 MG in Premix Bag 1 BAG IV SCH (18:12)
[2019-03-20] MEDS ORDERED: Simvastatin 20 MG Tab PO SCH (21:00)
[2019-03-20] MEDS: Fluconazole 100 MG Tab PO SCH (21:07)
[2019-03-21] MEDS: methylPREDNISolone Sodium Succinate 125 MG/2 ML SDV IVPUSH SCH ×3 (03:19→18:09)
[2019-03-21] MEDS: Heparin Sodium 5,000 Units/ML Vial SUBCUT SCH ×3 (07:07→23:01)
[2019-03-21] MEDS: Sodium Chloride 0.9% 1,000 ML IV SCH ×2 (08:06→18:02)
[2019-03-21] MEDS: Metoprolol Tartrate 25 MG Tab PO SCH (08:31)
[2019-03-21] MEDS: Aspirin 81 MG Tab.EC PO SCH (08:31)
[2019-03-21] MEDS: Ascorbic Acid 500 MG Tab PO SCH (08:32)
--- NOTE | 2019-03-21 09:18 | PCM.PN ---
- General Info Date of Service: 03/21/19 Admission Dx/Problem (Free Text): Admission Diagnosis/Problem Admission Diagnosis/Problem Cough, chronic bronchitis Subjective Update: The patient is a 73-year-old lady who had presented to the emergency department primarily out of concern for chronic cough. The patient today says that she feels essentially the same. She has had worsening of cough when trying to lay down and sleep. She is denied any fever or chills. The patient does far as been tolerating her diet. Functional Status: Reports: Pain Controlled - Review of Systems General: Reports: Weakness, Fatigue HEENT: Reports: No Symptoms Pulmonary: Reports: Cough, Sputum Cardiovascular: Reports: No Symptoms Gastrointestinal: Reports: No Symptoms Genitourinary: Reports: No Symptoms Musculoskeletal: Reports: No Symptoms Skin: Reports: No Symptoms Neurological: Reports: No Symptoms Psychiatric: Reports: No Symptoms - Patient Data Vitals - Most Recent: Last Vital Signs Temp 36.1 C 03/21/19 07:57 Pulse 77 03/21/19 08:31 Resp 17 03/21/19 07:57 BP 179/83 H 03/21/19 08:31 Pulse Ox 95 03/21/19 07:57 Weight - Most Recent: 76.067 kg I&O - Last 24 Hours: Intake & Output 03/20/19 03/21/19 03/21/19 22:59 06:59 14:59 Intake Total 1891 1680 Output Total 500 700 Balance 1391 980 Christian Results Last 24 Hours: Microbiology 03/19/19 18:49 Aerobic Blood Culture - Preliminary Blood - Venous NO GROWTH AFTER 1 DAY Anaerobic Blood Culture - Preliminary NO GROWTH AFTER 1 DAY 03/19/19 18:49 Aerobic Blood Culture - Preliminary Blood - Venous - Lab Draw NO GROWTH AFTER 1 DAY Anaerobic Blood Culture - Preliminary NO GROWTH AFTER 1 DAY Med Orders - Current: Current Medications Acetaminophen (Tylenol) 650 mg PO Q6H PRN PRN Reason: Pain (mild 1-3) Last Admin: 03/20/19 23:13 Dose: 650 mg Albuterol/Ipratropium (Duoneb 3.0-0.5 Mg/3 Ml) 3 ml NEB Q4HRRT PRN PRN Reason: Shortness of Breath Ascorbic Acid (Vitamin C) 500 mg PO DAILY [facility] Last Admin: 03/21/19 08:32 Dose: 500 mg Aspirin (Halfprin) 81 mg PO DAILY [facility] Last Admin: 03/21/19 08:31 Dose: 81 mg Fluconazole (Diflucan) 100 mg PO Q24H [facility] Last Admin: 03/20/19 21:07 Dose: 100 mg Heparin Sodium (Porcine) (Heparin Sodium) 5,000 units SUBCUT Q8H [facility] Last Admin: 03/21/19 07:07 Dose: Not Given Sodium Chloride (Normal Saline) 1,000 mls @ 100 mls/hr IV ASDIRECTED [facility] Last Admin: 03/21/19 08:06 Dose: 100 mls/hr Levofloxacin/Dextrose 500 mg/ (Premix) 100 mls @ 100 mls/hr IV Q24H [facility] Last Admin: 03/20/19 18:12 Dose: 100 mls/hr Methylprednisolone Sodium Succinate (Solu-Medrol) 125 mg IVPUSH Q8H [facility] Last Admin: 03/21/19 03:19 Dose: 125 mg Metoprolol Tartrate (Lopressor) 12.5 mg PO DAILY [facility] Last Admin: 03/21/19 08:31 Dose: 12.5 mg Ondansetron HCl (Zofran Odt) 4 mg PO Q4H PRN PRN Reason: nausea, able to take PO Oxycodone HCl (Oxycodone) 5 mg PO Q4H PRN PRN Reason: Pain (moderate 4-6) Quinapril HCl (Accupril) 40 mg PO DAILY [facility] Last Admin: 03/21/19 08:48 Dose: 40 mg Simvastatin (Zocor) 20 mg PO Q48H [facility] Last Admin: 03/20/19 21:08 Dose: Not Given Temazepam (Restoril) 15 mg PO BEDTIME PRN PRN Reason: Sleep Discontinued Medications Albuterol/Ipratropium (Duoneb 3.0-0.5 Mg/3 Ml) 3 ml NEB ONETIME ONE Stop: 03/19/19 16:59 Last Admin: 03/19/19 17:14 Dose: 3 ml Sodium Chloride (Normal Saline) 1,000 mls @ 125 mls/hr IV STAT [facility] Last Admin: 03/19/19 17:17 Dose: 125 mls/hr Fluconazole 200 mg/ Premix 100 mls @ 100 mls/hr IV Q24H [facility] Last Admin: 03/19/19 21:33 Dose: Not Given Levofloxacin/Dextrose 500 mg/ (Premix) 100 mls @ 100 mls/hr IV ONETIME ONE Stop: 03/19/19 19:16 Last Admin: 03/19/19 18:51 Dose: 100 mls/hr Methylprednisolone Sodium Succinate (Solu-Medrol) 125 mg IVPUSH ONETIME ONE Stop: 03/19/19 18:18 Last Admin: 03/19/19 18:47 Dose: 125 mg - Exam Quality Assessment: Supplemental Oxygen, DVT Prophylaxis General: Alert, Oriented, Cooperative, No Acute Distress HEENT: Pupils Equal, Pupils Reactive Neck: Supple, Trachea Midline Lungs: Normal Respiratory Effort, Crackles Cardiovascular: Regular Rate, Regular Rhythm GI/Abdominal Exam: Normal Bowel Sounds, Soft, No Distention Back Exam: Normal Inspection, Full Range of Motion Extremities: Normal Inspection, No Pedal Edema Skin: Warm, Dry, Intact Neurological: No New Focal Deficit Psy/Mental Status: Alert, Normal Affect, Normal Mood - Problem List & Annotations (1) Bronchitis SNOMED Code(s): 90052561 Code(s): J40 - BRONCHITIS, NOT SPECIFIED ACUTE OR CHRONIC Status: Acute Priority: High Current Visit: Yes (2) Hypertension SNOMED Code(s): 60244017 Code(s): I10 - ESSENTIAL (PRIMARY) HYPERTENSION Status: Chronic Priority : High Current Visit: Yes Qualifiers: Hypertension type: essential hypertension Qualified Code(s): I10 - Essential (primary) hypertension (3) Persistent cough SNOMED Code(s): 427034193 Code(s): R05 - COUGH Status: Chronic Priority: High Current Visit: Yes (4) Sinusitis SNOMED Code(s): 13971216 Code(s): J32.9 - CHRONIC SINUSITIS, UNSPECIFIED Status: Chronic Priority : High Current Visit: Yes Qualifiers: Sinusitis location: maxillary Chronicity: chronic Qualified Code(s): J32.0 - Chronic maxillary sinusitis (5) Hyperlipidemia SNOMED Code(s): 81551869 Code(s): E78.5 - HYPERLIPIDEMIA, UNSPECIFIED Status: Chronic Priority: Medium Current Visit: Yes Qualifiers: Hyperlipidemia type: other hyperlipidemia Qualified Code(s): E78.49 - Other hyperlipidemia; E78.4 - Other hyperlipidemia - Problem List Review Problem List Initiated/Reviewed/Updated: Yes - My Orders Last 24 Hours: My Active Orders 03/20/19 09:00 Ascorbic Acid [Vitamin C] 500 mg PO DAILY Aspirin [Halfprin] 81 mg PO DAILY Metoprolol Tartrate [Lopressor] 12.5 mg PO DAILY Quinapril [Accupril] 40 mg PO DAILY 03/20/19 19:00 Levofloxacin/Dextrose 5%-Water [Levaquin in D5W 500 MG/100 ML] 500 mg Premix Bag 1 bag IV Q24H 03/20/19 21:00 Simvastatin [Zocor] 20 mg PO Q48H 03/20/19 23:20 CULTURE FUNGUS [MREF] Routine FUNGUS STAIN [MREF] Routine 03/21/19 09:30 Codeine/Promethazine [Phenergan with Codeine] 5 ml PO Q6HR Ranitidine [Zantac] 150 mg PO BID - Plan Plan:: Patient is a 73-year-old lady who presented to the emergency department with bronchitis with cough and sputum production. The patient had been on outpatient antibiotics and had failed disease. Fungal cultures as well as fungal stain have been ordered for sputum. The patient will be admitted and started on Levaquin and Diflucan for now. These will be de-escalated as needed. I've also ordered SVNs. The patient will be anticoagulated with heparin for now. She'll be continued on fluids. Patient has been encouraged to ambulate. I've ordered repeat laboratory studies. The patient will need to have a PFT as an outpatient. The patient should be appropriate for discharge in 1-2 days. The patient will be monitored with regards to her vital signs. I've ordered her antihypertensives continued. She'll have a heart healthy diet as tolerated. The patient is a 73-year-old lady who is doing better today. The patient says that she still feels weak. Her coughing has remained the same. She has been using oxygen because it makes her feel better. Fungal cultures are currently pending. For now we'll keep the patient on her current Levaquin and Diflucan. I' ve also ordered ranitidine 150 mg by mouth twice a day to help reduce acid reflux-induced cough. Also, the patient will be prescribe promethazine and codeine to help reduce her cough. Repeat laboratory studies been ordered. Patient has been encouraged to ambulate. The patient should be appropriate for discharge tomorrow morning.
[2019-03-21] MEDS: Ranitidine 15 MG/ML Syrup 10 ML UD Cup PO SCH ×2 (09:37→20:41)
[2019-03-21] MEDS: Codeine/Promethazine 10-6.25 MG/5 ML Syrup 5 ML UD Cup PO SCH ×4 (09:37→23:06)
--- NOTE | 2019-03-21 13:13 | CR ---
EXAMINATION: Portable chest radiograph. HISTORY: Cough. FINDINGS: The trachea is midline. The cardiomediastinal silhouette is within normal limits. No pulmonary infiltrates, effusions or pneumothorax. Osseous structures appear unremarkable. IMPRESSION: No acute cardiopulmonary process.
[2019-03-21] MEDS: Levofloxacin/Dextrose 5%-Water 500 MG in Premix Bag 1 BAG IV SCH (18:10)
[2019-03-21] MEDS: Fluconazole 100 MG Tab PO SCH (20:41)
[2019-03-22] MEDS: methylPREDNISolone Sodium Succinate 125 MG/2 ML SDV IVPUSH SCH ×2 (03:36→11:28)
[2019-03-22] MEDS: Sodium Chloride 0.9% 1,000 ML IV SCH (03:39)
[2019-03-22] MEDS: Codeine/Promethazine 10-6.25 MG/5 ML Syrup 5 ML UD Cup PO SCH ×2 (06:38→11:28)
[2019-03-22] MEDS: Heparin Sodium 5,000 Units/ML Vial SUBCUT SCH (06:40)
[2019-03-22] MEDS: Aspirin 81 MG Tab.EC PO SCH (08:48)
[2019-03-22] MEDS: Ascorbic Acid 500 MG Tab PO SCH (08:48)
[2019-03-22] MEDS: Ranitidine 15 MG/ML Syrup 10 ML UD Cup PO SCH (08:48)
[2019-03-22] MEDS: Metoprolol Tartrate 25 MG Tab PO SCH (08:49)
--- NOTE | 2019-03-22 12:21 | PCM.DCSUM1 ---
Discharge Summary - Hospital Course HPI Initial Comments: Chronic cough. Diagnosis: Stroke: No - Discharge Data Discharge Date: 03/22/19 Discharge Disposition: Home, Self-Care 01 Condition: Good - Discharge Diagnosis/Problem(s) (1) Bronchitis SNOMED Code(s): 82828581 ICD Code: J40 - BRONCHITIS, NOT SPECIFIED ACUTE OR CHRONIC Status: Chronic Priority: High (2) Hypertension SNOMED Code(s): 59118203 ICD Code: I10 - ESSENTIAL (PRIMARY) HYPERTENSION Status: Chronic Priority : High Qualifiers: Hypertension type: essential hypertension Qualified Code(s): I10 - Essential (primary) hypertension (3) Persistent cough SNOMED Code(s): 957880415 ICD Code: R05 - COUGH Status: Chronic Priority: High (4) Sinusitis SNOMED Code(s): 40503778 ICD Code: J32.9 - CHRONIC SINUSITIS, UNSPECIFIED Status: Chronic Priority : High Qualifiers: Sinusitis location: maxillary Chronicity: chronic Qualified Code(s): J32.0 - Chronic maxillary sinusitis (5) Hyperlipidemia SNOMED Code(s): 56639023 ICD Code: E78.5 - HYPERLIPIDEMIA, UNSPECIFIED Status: Chronic Priority: Medium Qualifiers: Hyperlipidemia type: other hyperlipidemia Qualified Code(s): E78.49 - Other hyperlipidemia; E78.4 - Other hyperlipidemia - Patient Summary/Data Hospital Course: The patient is a 73-year-old lady who is presented to the emergency department with a complaint of cough and sputum production. The patient had been recently in [place] and spent 6 months of the year in [place]. The patient reports that she had been evaluated at urgent care center and had been on several courses of antibiotics but had failed to improve. It's also noted that the patient has been taking an PATY inhibitor and this class of drugs is been known to cause a cough although the patient has been taking this for a long period of time. This should be evaluated by her primary care physician. Because of this the patient has been concerned about fungal infection. The patient also has tried multiple antibiotics but has failed for relief of her symptoms. The patient had noted that her cough was worse when lying down and that she does have a history of mild reflux. The patient had been treated with the use of Zantac 150 mg by mouth twice a day to help with acid reflux and associated cough. The patient also had been placed on Phenergan with codeine which seemed to help suppress her cough as well. She had been given prescriptions for both of these medications. These had improved her overall cough. Fungal studies are still pending. The patient has been recommended to follow-up with her primary care physician if the idea with the Zantac and preventing occult reflux and associated cough doesn't help. The patient has been recommended to continue with her other medications as prescribed. She has been recommended to have her diet as tolerated. The patient is also to have activity as tolerated. She has been hemodynamically stable and is currently not on oxygen. She has been discharged from acute hospitalization with recommendations listed above. - Patient Instructions Diet: Heart Healthy Diet Activity: As Tolerated Notify Provider of: Fever, Increased Pain - Discharge Plan *PRESCRIPTION DRUG MONITORING PROGRAM REVIEWED*: No *COPY OF PRESCRIPTION DRUG MONITORING REPORT IN PATIENT URSZULA: No Prescriptions/Med Rec: Azithromycin 500 mg PO DAILY #5 tablet guaiFENesin/Codeine Phosphate [Coditussin AC Liquid] 5 ml PO Q6H PRN #120 ml PRN Reason: Cough Ranitidine [Zantac] 150 mg PO BID #60 tab Home Medications: Home Meds Ascorbic Acid [Vitamin C] 500 mg PO DAILY 03/19/19 [History] Aspirin [Adult Low Dose Aspirin EC] 1 tab DAILY 03/19/19 [History] Cetirizine [ZyrTEC] 10 mg PO DAILY 03/19/19 [History] Lactobacillus Acidophilus [Probiotic] 1 each PO DAILY 03/19/19 [History] Metoprolol Tartrate 0.5 tab PO DAILY 03/19/19 [History] Psyllium Husk/Aspartame [Metamucil Fiber Singles Packet] 3.4 gm PO ASDIRECTED PRN 03/19/19 [History] Quinapril HCl 40 mg PO DAILY 03/19/19 [History] Simvastatin 20 mg PO ASDIRECTED 03/19/19 [History] Vitamin B Complex/Folic Acid [Super B Maxi Complex Caplet] 1 tab DAILY 03/19/19 [History] guaiFENesin [Mucinex] 2 tab PO DAILY PRN 03/19/19 [History] Azithromycin 500 mg PO DAILY #5 tablet 03/22/19 [Rx] Quinapril HCl [Accupril] 40 mg PO DAILY tablet 03/22/19 [Rx] Ranitidine [Zantac] 150 mg PO BID #60 tab 03/22/19 [Rx] guaiFENesin/Codeine Phosphate [Coditussin AC Liquid] 5 ml PO Q6H PRN #120 ml [Rx] oxyCODONE 5 mg PO Q4H PRN tablet 03/22/19 [Rx] Oxygen Therapy Mode: Room Air Patient Handouts: Ranitidine tablets or capsules, Cough, Adult, [id number], Azithromycin tablets, Codeine; Guaifenesin oral solution or syrup Referrals: Paulo Frey MD [Ordering Only Provider] - 03/29/19 2:30 pm - Discharge Summary/Plan Comment DC Time >30 min.: Yes - General Info Date of Service: 03/22/19 Admission Dx/Problem (Free Text: Admission Diagnosis/Problem Admission Diagnosis/Problem Cough, chronic bronchitis Subjective Update: Overall the patient is doing much better today. Her cough is decreased. She has been breathing better. The Zantac seems to be helping her. Functional Status: Reports: Pain Controlled - Review of Systems General: Reports: No Symptoms HEENT: Reports: No Symptoms Pulmonary: Reports: Cough Cardiovascular: Reports: No Symptoms Gastrointestinal: Reports: No Symptoms Genitourinary: Reports: No Symptoms Musculoskeletal: Reports: No Symptoms Skin: Reports: No Symptoms Neurological: Reports: No Symptoms Psychiatric: Reports: No Symptoms - Patient Data Vitals - Most Recent: Last Vital Signs Temp 36.2 C 03/22/19 08:00 Pulse 70 03/22/19 08:49 Resp 16 03/22/19 08:00 BP 146/81 H 03/22/19 08:49 Pulse Ox 94 L 03/22/19 08:00 Weight - Most Recent: 76.067 kg I&O - Last 24 hours: Intake & Output 03/21/19 03/22/19 03/22/19 22:59 06:59 14:59 Intake Total 1830 1660 Output Total 500 650 Balance 1330 1010 Lab Results - Last 24 hrs: Laboratory Results - last 24 hr 03/22/19 03/22/19 Range/Units 07:15 07:15 WBC 15.31 H (4.0-11.0) K/uL RBC 4.08 L (4.30-5.90) M/uL Hgb 12.9 (12.0-16.0) g/dL Hct 39.2 (36.0-46.0) % MCV 96.1 (80.0-98.0) fL MCH 31.6 (27.0-32.0) pg MCHC 32.9 (31.0-37.0) g/dL RDW Std Deviation 47.3 (28.0-62.0) fl RDW Coeff of Aundrea 14 (11.0-15.0) % Plt Count 247 (150-400) K/uL MPV 10.10 (7.40-12.00) fL Neut % (Auto) 60.8 (48.0-80.0) % Lymph % (Auto) 37.2 (16.0-40.0) % [place] % (Auto) 1.6 (0.0-15.0) % Eos % (Auto) 0.3 (0.0-7.0) % Baso % (Auto) 0.1 (0.0-1.5) % Neut # (Auto) 9.3 H (1.4-5.7) K/uL Lymph # (Auto) 5.7 H (0.6-2.4) K/uL [place] # (Auto) 0.2 (0.0-0.8) K/uL Eos # (Auto) 0.1 (0.0-0.7) K/uL Baso # (Auto) 0.0 (0.0-0.1) K/uL Nucleated RBC % 0.0 /100WBC Nucleated RBCs # 0 K/uL Sodium 141 (136-145) mmol/L Potassium 4.1 (3.5-5.1) mmol/L Chloride 109 H (98-107) mmol/L Carbon Dioxide 23.4 (21.0-32.0) mmol/L BUN 24 H (7.0-18.0) mg/dL Creatinine 1.4 H (0.6-1.0) mg/dL Est Cr Clr Drug Dosing 29.16 mL/min Estimated GFR (MDRD) 36.8 ml/min Glucose 138 H (74-106) mg/dL Calcium 8.1 L (8.5-10.1) mg/dL CHIN Results - Last 24 hrs: Microbiology 03/20/19 23:20 [place] Methenamine Silver Stain - Final Sputum - Expectorated 03/19/19 18:49 Aerobic Blood Culture - Preliminary Blood - Venous NO GROWTH AFTER 2 DAYS Anaerobic Blood Culture - Preliminary NO GROWTH AFTER 2 DAYS 03/19/19 18:49 Aerobic Blood Culture - Preliminary Blood - Venous - Lab Draw NO GROWTH AFTER 2 DAYS Anaerobic Blood Culture - Preliminary NO GROWTH AFTER 2 DAYS Med Orders - Current: Current Medications Acetaminophen (Tylenol) 650 mg PO Q6H PRN PRN Reason: Pain (mild 1-3) Last Admin: 03/20/19 23:13 Dose: 650 mg Albuterol/Ipratropium (Duoneb 3.0-0.5 Mg/3 Ml) 3 ml NEB Q4HRRT PRN PRN Reason: Shortness of Breath Ascorbic Acid (Vitamin C) 500 mg PO DAILY [facility] Last Admin: 03/22/19 08:48 Dose: 500 mg Aspirin (Halfprin) 81 mg PO DAILY [facility] Last Admin: 03/22/19 08:48 Dose: 81 mg Fluconazole (Diflucan) 100 mg PO Q24H [facility] Last Admin: 03/21/19 20:41 Dose: 100 mg Heparin Sodium (Porcine) (Heparin Sodium) 5,000 units SUBCUT Q8H [facility] Last Admin: 03/22/19 06:40 Dose: Not Given Sodium Chloride (Normal Saline) 1,000 mls @ 100 mls/hr IV ASDIRECTED [facility] Last Admin: 03/22/19 03:39 Dose: 100 mls/hr Levofloxacin/Dextrose 500 mg/ (Premix) 100 mls @ 100 mls/hr IV Q24H [facility] Last Admin: 03/21/19 18:10 Dose: 100 mls/hr Methylprednisolone Sodium Succinate (Solu-Medrol) 125 mg IVPUSH Q8H [facility] Last Admin: 03/22/19 11:28 Dose: 125 mg Metoprolol Tartrate (Lopressor) 12.5 mg PO DAILY [facility] Last Admin: 03/22/19 08:49 Dose: 12.5 mg Ondansetron HCl (Zofran Odt) 4 mg PO Q4H PRN PRN Reason: nausea, able to take PO Oxycodone HCl (Oxycodone) 5 mg PO Q4H PRN PRN Reason: Pain (moderate 4-6) Promethazine HCl/Codeine (Phenergan With Codeine) 5 ml PO Q6HR [facility] Last Admin: 03/22/19 11:28 Dose: 5 ml Quinapril HCl (Accupril) 40 mg PO DAILY [facility] Last Admin: 03/22/19 09:14 Dose: 40 mg Ranitidine HCl (Zantac) 150 mg PO BID [facility] Last Admin: 03/22/19 08:48 Dose: 10 ml Simvastatin (Zocor) 20 mg PO Q48H [facility] Last Admin: 03/20/19 21:08 Dose: Not Given Temazepam (Restoril) 15 mg PO BEDTIME PRN PRN Reason: Sleep Last Admin: 03/21/19 23:06 Dose: 15 mg Discontinued Medications Albuterol/Ipratropium (Duoneb 3.0-0.5 Mg/3 Ml) 3 ml NEB ONETIME ONE Stop: 03/19/19 16:59 Last Admin: 03/19/19 17:14 Dose: 3 ml Sodium Chloride (Normal Saline) 1,000 mls @ 125 mls/hr IV STAT [facility] Last Admin: 03/19/19 17:17 Dose: 125 mls/hr Fluconazole 200 mg/ Premix 100 mls @ 100 mls/hr IV Q24H [facility] Last Admin: 03/19/19 21:33 Dose: Not Given Levofloxacin/Dextrose 500 mg/ (Premix) 100 mls @ 100 mls/hr IV ONETIME ONE Stop: 03/19/19 19:16 Last Admin: 03/19/19 18:51 Dose: 100 mls/hr Methylprednisolone Sodium Succinate (Solu-Medrol) 125 mg IVPUSH ONETIME ONE Stop: 03/19/19 18:18 Last Admin: 03/19/19 18:47 Dose: 125 mg - Exam Quality Assessment: Denies: Supplemental Oxygen General: Reports: Alert, Oriented, Cooperative, No Acute Distress HEENT: Reports: Pupils Equal, Pupils Reactive, EOMI, Mucous Membr. Moist/[place] Neck: Reports: Supple, Trachea Midline Lungs: Reports: Clear to Auscultation, Normal Respiratory Effort Cardiovascular: Reports: Regular Rate, Regular Rhythm GI/Abdominal Exam: Normal Bowel Sounds, Soft, Non-Tender, No Distention Back Exam: Reports: Normal Inspection, Full Range of Motion Extremities: Normal Inspection, No Pedal Edema Skin: Reports: Warm, Dry, Intact Neurological: Reports: No New Focal Deficit Psy/Mental Status: Reports: Alert, Normal Affect, Normal Mood
== END 2019-03-22 01:15 | disposition home or self-care (01) | DRG 203 ==
LOC: MW.ED 16:53 → MW.MS 19:21
PROVIDERS: ADMIT Internal Medicine; ATTEND Internal Medicine
DX: J40 Bronchitis, not specified as acute or chronic (principal); H54.7 Unspecified visual loss; H91.90 Unspecified hearing loss, unspecified ear; E78.00 Pure hypercholesterolemia, unspecified; I10 Essential (primary) hypertension; K59.09 Other constipation; J32.0 Chronic maxillary sinusitis; Z90.89 Acquired absence of other organs; J32.9 Chronic sinusitis, unspecified; Z88.2 Allergy status to sulfonamides; Z79.82 Long term (current) use of aspirin; Z79.899 Other long term (current) drug therapy; D72.829 Elevated white blood cell count, unspecified; R05 Cough; R53.81 Other malaise; R06.2 Wheezing
CPT/HCPCS: 36415; 70486; 71045; 80053; 81001; 83880; 84484; 85025; 85379; 87040 ×2; 88104; 94640; 96361; 96365; 96375; 99285; A4217; J1956; J2930; J7040; 80048; 87102; 93005; 99283; A9270-GY; J1644; J7620-GY